=== PATIENT | female | born 1985 | race Caucasian/White ===

== ENCOUNTER 2017-02-11 22:47 | Emergency (ER) | payer BC, OTHER ==
[2017-02-11] MEDS ORDERED: ONDANSETRON 4 MG/2ML 2 ML VIAL ONE (23:53)
[2017-02-11] MEDS ORDERED: SODIUM CHLORIDE 0.9% 2,000 ML ONE (23:54)
[2017-02-11] MEDS ORDERED: SULFAMETHOXAZOLE 800 MG/TRIMETHOPRIM 160 MG TABLET ONE (23:54)
[2017-02-12] MEDS ORDERED: METOCLOPRAMIDE HCL 5 MG/ML 2ML VIAL ONE (00:41)
[2017-02-12] MEDS ORDERED: ACETAMINOPHEN 500 MG TABLET ONE (01:04)
== END 2017-02-12 01:12 | disposition home or self-care (01) ==
LOC: ED 22:47
DX: N61.0 Mastitis without abscess (principal); Z79.899 Other long term (current) drug therapy; Z88.5 Allergy status to narcotic agent